=== PATIENT | male | born 1970 | race African-American/Black ===

== ENCOUNTER 2019-05-29 05:28 | Day surgery (SDC) | payer MEDICAID ==
[~2019-05-29] VITALS: Ht 165.1 cm; Wt 73.0 kg
[2019-05-29] MEDS ORDERED: LACTATED RINGERS 1,000 ML IV SCH (06:30)
[2019-05-29] MEDS ORDERED: BUPIVACAINE HCL/EPINEPHRINE/PF 0.5%/0.0005 10ML ONE (07:04)
[2019-05-29] MEDS ORDERED: NORMAL SALINE 0.9% 10 ML SYR ONE (07:04)
[2019-05-29] MEDS ORDERED: BACITRACIN 15GM TUBE TOP ONE (07:04)
[2019-05-29] MEDS ORDERED: SKIN ADHESIVE 0.7 GM EA TOP ONE (07:05)
[2019-05-29] MEDS ORDERED: BACITRACIN 50,000 UNITS/VIAL ONE (07:05)
[2019-05-29] MEDS ORDERED: VANCOMYCIN HCL 1 GM/VIAL ONE (07:05)
[2019-05-29] MEDS ORDERED: PROPOFOL 200MG/20ML VIAL IV ONE (07:35)
[2019-05-29] MEDS ORDERED: MIDAZOLAM HCL 2 MG/2 ML VIAL ONE (07:35)
[2019-05-29] MEDS ORDERED: LIDOCAINE HCL/PF 1% 10 MG/ML 5ML VIAL ONE (07:35)
[2019-05-29] MEDS ORDERED: FENTANYL CITRATE/PF 50MCG/ML 2ML VIAL ONE (07:35)
[2019-05-29] MEDS ORDERED: SODIUM CHLORIDE 0.9% 10ML VIAL ONE (07:36)
[2019-05-29] MEDS ORDERED: CEFAZOLIN SODIUM 1000MG/VIAL ONE (07:36)
[2019-05-29] MEDS ORDERED: ROCURONIUM BROMIDE 10MG/ML VIAL 5ML IV ONE (07:43)
[2019-05-29] MEDS ORDERED: METOCLOPRAMIDE HCL 10MG/2ML VIAL ONE (08:31)
[2019-05-29] MEDS ORDERED: ONDANSETRON HCL 4MG/2ML INJ ONE (08:31)
[2019-05-29] MEDS ORDERED: KETOROLAC 30MG/ML VIAL ONE (09:14)
[2019-05-29] MEDS ORDERED: HYDROCODONE/ACETAMINOPHEN 10/325MG TABLET PO PRN (09:45)
[2019-05-29] MEDS ORDERED: HYDROMORPHONE HCL/PF 2MG/ML CPJ IV PRN (10:00)
== END 2019-05-29 11:10 | disposition home or self-care (01) ==
LOC: OR 05:28
PROVIDERS: ATTEND Orthopaedic Surgery
DX: S82.202S Unspecified fracture of shaft of left tibia, sequela (principal); S82.402S Unspecified fracture of shaft of left fibula, sequela; M79.605 Pain in left leg; K21.9 Gastro-esophageal reflux disease without esophagitis; Z98.890 Other specified postprocedural states; Z79.899 Other long term (current) drug therapy; X58.XXXS Exposure to other specified factors, sequela
CPT/HCPCS: 20680; 73610; 76000; 88300; J0171; J0690; J1885; J2250; J2405; J2704; J2765; J3010; J3490; J3370